=== PATIENT | male | born 1980 | race Caucasian/White ===

== ENCOUNTER 2017-10-16 16:19 | Emergency (ER) | payer OTHER ==
[2017-10-16] MEDS ORDERED: ONDANSETRON HCL/PF 4 MG/ 2ML VIAL IVP ONE ×2 (16:25→18:27)
[2017-10-16] MEDS ORDERED: 0.9 % SODIUM CHLORIDE 1,000 ML IV ONE (16:26)
[2017-10-16] MEDS: HYDROmorphone HCL/PF 2 MG/ML DISP.SYRIN IVP ONE ×2 (16:34→17:25)
[2017-10-16] MEDS ORDERED: HYDROmorphone HCL/PF 2 MG/ML DISP.SYRIN IVP ONE (17:30)
--- NOTE | 2017-10-16 17:30 | ED Physician Documentation ---
Upper Extremity Injury - HISTORIAN Historian: patient - HPI Stated Complaint: L shoulder pain Chief Complaint: Shoulder Injury/ Pain Additional Information: Multiple subluxations of left shoulder in the past, which he has been able to relieve by hanging by hands on overhead bar. Previous subluxations said to be anterior. At 1330 today, he was working out with cable machine and L shoulder subluxed. He has not been able to reduce it. It is quite painful. 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 HX drug abuse. Had general anesthesi a for throat surgery w/o difficulty. - ROS CONST: no problems - PAST HX Past History: other (above) Allergies/Adverse Reactions: Allergies Allergy/AdvReac Type Severity Reaction Status Date / Time No Known Allergies Allergy Verified 10/16/17 16:56 - SOCIAL HX Smoking History: non-smoker - FAMILY HX Family History: no significant history (liver disease) - VITAL SIGNS Vital Signs: Vital Signs Temp Pulse Resp BP Pulse Ox 98.6 F 63 18 147/107 98 10/16/17 16:20 10/16/17 16:20 10/16/17 16:20 10/16/17 16:20 10/16/17 16:20 - REVIEWED ASSESSMENTS Nursing Assessment Reviewed: Yes Vitals Reviewed: Yes Progress - Progress Progress: Report Submission Date: Oct 16, 2017 5:18:16 PM CDT Patient Study Name: YAMILETH ESCOBAR Date: Oct 16, 2017 4:30:30 PM CDT Modality Type: DX Gender: M Description: SHOULDER : 76 Institution: [facility] Physician: GERI DANIEL - ZAC Left shoulder, 3 views History: Shoulder pain Findings: The osseous, joint and soft tissue structures are normal. Impression: Normal. Electronically signed on Oct 16, 2017 5:18:16 PM CDT by: Jonathan Garner Exam of left shoulder is not convincing for subluxation or not. Pt has experienced subluxation several times in the past and feels it is dislocated. Will use ketamine/conscious sedation to allow exam and reduction if indicated. 1740, 0.5 mg/kg ketamine IVP. Full passive ROM left shoulder w/o obstruction or crepitance. Shoulder placed into external rotation, Milch, Spaso and Mitch maneuvers w/o thunk. No palpable subluxation. No post op film needed since no crepitance or reduction of non-subluxed shoulder. Suspect pt subluxed shoulder with spontaneous reduction at some point but remaining pain because shoulder "out" longer than his usual. Shoulder immobilizer applied. experience pain 1805, awake, conversant, drinking water ED Results Lab/Radiology - Orders Orders: ED Orders Category Date Time Status Place IV Lock 1T Care 10/16/17 16:25 Active SHOULDER 2 VIEWS OR MORE [RAD] Stat Exams 10/16/17 Taken 0.9 % Sodium Chloride [Normal Saline] 1,000 ml Med 10/16/17 16:26 Discontinued IV Q1H HYDROmorphone HCL/PF [Dilaudid] Med 10/16/17 16:25 Discontinued 1 mg IVP NOW ONE HYDROmorphone HCL/PF [Dilaudid] Med 10/16/17 17:30 Discontinued 1 mg IVP NOW ONE Ketamine HCl [Ketalar] Med 10/16/17 17:32 Discontinued 200 mg .ROUTE .STK-MED ONE Ketamine HCl [Ketalar] Med 10/16/17 17:32 Discontinued 95 mg IVP NOW ONE Ondansetron HCl/Pf [Zofran 4 mg/2 ml] Med 10/16/17 16:25 Discontinued 4 mg IVP NOW ONE Upper Extremity Injury Physic - Physical Exam General Appearance: alert, moderate distress Hand: normal inspection, non-tender, no evidence of injury, normal ROM Wrist: normal inspection, non-tender, no evidence of injury, normal ROM Elbow/Forearm: normal inspection, non-tender, no evidence of injury, normal ROM Shoulder: normal inspection (right), swelling (?? Pain with palpation anterior to glenohumeral joint. Can't definitely palpate humeral head. Pt is quite muscular. ) Neuro/Vascular/Tendon: no vascular compromise, motor nml, sensation nml Skin: warm,dry Head/ENT: nml inspection Neck/Back: nml inspection Discharge Clincal Impression: Shoulder pain Qualifiers: Chronicity: acute Laterality: left Qualified Code(s): M25.512 - Pain in left shoulder Referrals: Santana Puente III, MD [Primary Care Provider] - 2 Days Condition: Good Disposition: 01 HOME, SELF-CARE Decision to Admit: NO Decision Time: 18:05
[2017-10-16] MEDS ORDERED: KETAMINE HCL 200 MG/20 ML VIAL ONE (17:32)
[2017-10-16] MEDS ORDERED: KETAMINE HCL 200 MG/20 ML VIAL IVP ONE (17:32)
[2017-10-16 18:54] VITALS: BP 113/58
--- NOTE | 2017-10-17 05:04 | Diagnostic Imaging Report ---
GERI DANIEL [facility] [id number] [facility] [address] [address] Report Submission Date: Oct 16, 2017 5:18:16 PM CDT Patient Study Name: YAMILETH ESCOBAR Date: Oct 16, 2017 4:30:30 PM CDT Modality Type: DX Gender: M Description: SHOULDER : 76 Institution: [facility] Physician: GERI DANIEL Left shoulder, 3 views History: Shoulder pain Findings: The osseous, joint and soft tissue structures are normal. Impression: Normal. Electronically signed on Oct 16, 2017 5:18:16 PM CDT by: Jonathan EAST
== END 2017-10-16 18:53 | disposition home or self-care (01) ==
LOC: ED 16:19
DX: M25.512 Pain in left shoulder (principal)
CPT/HCPCS: 73030; J1170; J2405; J7030; 96365; 96366; 96375; 96376; 99284; S1016